=== PATIENT | male | born 1965 | race Caucasian/White ===

== ENCOUNTER 2017-07-09 11:19 | Emergency (ER) | payer OTHER ==
[2017-07-09 11:26] VITALS: TEMP 98.1
--- NOTE | 2017-07-09 13:06 | EDPHY ---
HPI/HX/ROS/PE/MDM Narrative: CHIEF COMPLAINT: Cough HISTORY OF PRESENT ILLNESS: This patient is a 51 year old male with history of CVA, diabetes, and OH with stent placement complaining of worsening cough. He began feeling ill three days ago with upper respiratory symptoms. He felt warm at that time and took Tylenol for symptom relief. Yesterday, he developed chest congestion and a productive cough in the evening. Last night, he woke frequently trying to catch his breath with a sensation of something being caught in his throat. Each time he woke, he felt his heart was racing. He denies history of sleep apnea, and this difficulty began after his cold symptoms. He has been eating an drinking well. The patient denies history of lung problems. His symptoms today do not feel at all similar to his sensation with his prior cardiac event. No chills, chest pain, shortness of breath, palpitations vomiting, diarrhea, urinary complaints, headache, lightheadedness. REVIEW OF SYSTEMS: Aside from elements discussed in the HPI, a comprehensive 10-point review of systems was reviewed and is negative. PAST MEDICAL HISTORY: 1. History of OH with stent placement 2. History of CVA 3. Hypertension 4. Diabetes 5. Hyperlipidemia SOCIAL HISTORY: Lives in [place]. Nonsmoker. . VITAL SIGNS: Reviewed by me GENERAL: Well-developed, well-nourished, resting comfortably in no respiratory distress. Sounds congested. HEENT: Atraumatic. Eyes: No icterus, no injection. Mouth: moist mucous membranes. Mild pharyngeal erythema. No lesions or exudates. Neck: supple with no adenopathy. No meningismus. LUNGS: Clear to auscultation bilaterally, no wheezes, rhonchi or rales. CARDIAC: Regular rate and rhythm, no rubs, murmurs or gallops. ABDOMEN: Soft, nontender, nondistended, bowel sounds normal. BACK: No CVA tenderness. EXTREMITIES: No trauma. No edema. Range of motion is normal throughout. NEURO: Alert and oriented, grossly nonfocal. SKIN: Warm and dry, no rash. PSYCHIATRIC: Normal mentation, no agitation. Portions of this note were transcribed by a medical affairs manager. I personally performed a history, physical exam, medical decision making, and confirmed accuracy of information the transcribed note. ED Course: 51 y/o male presents with three day history of URI symptoms and worsening cough. Patient appears congested and has mild pharyngeal erythema. Breath sounds are clear and equal bilaterally. Plan for chest x-ray to r/o pneumonia or other acute processes. Flu swab completed. Patient declines laboratory studies or IV rehydration at this time. Flu swab negative for influenza. 13:53 Reviewed chest x-ray. No evidence of pulmonary edema, cardiomegaly, infiltrate. Plan to discharge home in good condition with prescription for Azithromycin to treat acute bronchitis. Follow up and return precautions discussed. The patient is comfortable with this plan. MDM: Differential diagnosis for the patient's cough was considered including but not limited to viral versus bacterial bronchitis, asthma, COPD, pulmonary emboli, upper respiratory infection, lower respiratory infection, and bronchospasm. General Time Seen by Provider: 07/09/17 12:54 Initial Vital Signs: Initial Vital Signs Temperature (C) 36.7 C 07/09/17 11:23 Heart Rate 84 07/09/17 11:23 Respiratory Rate 16 07/09/17 11:23 Blood Pressure 136/93 H 07/09/17 11:23 O2 Sat (%) 96 07/09/17 11:23 O2 Delivery Mode Room Air Allergies/Adverse Reactions: No Known Allergies Allergy (Verified 07/09/17 11:22) Home Medications: Medication Instructions Recorded Lisinopril [Zestril 40 mg (RX)] 40 mg PO DAILY 04/23/15 Metformin HCl [Metformin 1000 mg] 1,000 mg PO BID 04/23/15 Nitroglycerin [Nitrostat] 0.4 mg SL 04/23/15 SIMVASTATIN 10 mg PO 04/23/15 AZITHROMYCIN [Z-PACK] 250 - 500 mg PO DAILY #6 tab 07/09/17 GABAPENTIN 07/09/17 Metoprolol Succinate 07/09/17 Departure - Departure Disposition: Home, Routine, Self-Care Clinical Impression: Acute bronchitis, Viral upper respiratory illness Condition: Good Instructions: Acute Bronchitis (ED) Additional Instructions: Mainstay of therapy will be to drink plenty of fluids, control your symptoms with [id number] medications, and get plenty of rest. If you have a fever, use Tylenol or ibuprofen. You may take both at the same time if needed. Adult Pain & Fever Control: We recommend Acetaminophen (Tylenol) and Ibuprofen (Motrin, Advil) for pain and fever control. When fever is high or pain severe, both drugs can be used at the same time, but at different intervals. Please note the time differences. Your dose is: Acetaminophen [650-1000]mg every 4 to 6 hours Ibuprofen [600]mg every [8] hours with food. If you have a runny nose, I recommend an antihistamine, such as Benadryl. Antihistamines are often sedating. Claritin and Betsy are nonsedating antihistamines. If you are congested, take a decongestant. Afrin nasal spray will help a few have significant sinus congestion. Do not use this for more than 3 days in a row. Flonase nasal spray is also helpful for nasal congestion. If you have a sore throat, take Tylenol, or ibuprofen. Throat lozenges, throat sprays, or salt water gargles may also be helpful. Please take the antibiotic azithromycin as directed. Return to the Emergency Department or seek care urgently if your symptoms are worsening despite the above treatment, if you develop shortness of breath, if you're unable to drink fluids secondary to throat pain or other issues, if you developed, vomiting, diarrhea, or other concerns. Referrals: NONE *PRIMARY CARE P,. [Primary Care Provider] - As per Instructions Machelle Aguiar MD [[facility] Primary Care Provider] - As per Instructions Prescriptions: AZITHROMYCIN [Z-PACK] 250 - 500 mg PO DAILY #6 tab Report Scribed for: Monika Oliveros Report Scribed by: Keren Olvera Date of Report: 07/09/17 Time of Report: 13:06
[2017-07-09 14:13] VITALS: BP 130/91; PULSE 75; RESP 15; O2SAT 94
== END 2017-07-09 14:13 | disposition home or self-care (01) ==
DX: J20.9 Acute bronchitis, unspecified (principal); J06.9 Acute upper respiratory infection, unspecified; I10 Essential (primary) hypertension; E11.9 Type 2 diabetes mellitus without complications; I25.2 Old myocardial infarction; Z79.84 Long term (current) use of oral hypoglycemic drugs; Z95.5 Presence of coronary angioplasty implant and graft; Z86.73 Personal history of transient ischemic attack (TIA), and cerebral infarction without residual deficits